=== PATIENT | male | born 1960 | race American Indian/Alaskan Native ===

== ENCOUNTER 2019-07-23 01:15 | Emergency (ER) | payer MEDICARE ==
[2019-07-23] MEDS ORDERED: ACETAMINOPHEN 500 MG TAB PO ONE (02:06)
--- NOTE | 2019-07-23 02:10 | Emergency Department Report ---
ED Shortness of Breath HPI - General Chief Complaint: Weakness Stated Complaint: SHORT OF BREATH COUGH + COVID-19 Time Seen by Provider: 07/23/19 01:26 Source: family, EMS Mode of arrival: Stretcher Limitations: No Limitations - History of Present Illness Initial Comments: 59-year-old male status post kidney transplant in 2018 presents to ED with shortness of breath. Patient tested positive for COVID-19. Patient reports his symptoms began 6 days ago, with fever, cough, diarrhea, and shortness of breath. Patient states he was seen at his PCPs office but was unable to get tested. 4 days ago he went to urgent care and was able to get tested for COVID-19. He was given a prescription for Tamiflu, azithromycin, and hydroxychloroquine at the urgent care. He also states he was given an injection at the urgent care but unsure what medication it was. Two days later, he received a call informing him that he tested positive for COVID-19. Patient has taken those medications for the last 2 days. He now presents to the ED for worsening shortness of breath. Patient currently takes CellCept, Prograf, and prednisone as antirejection medications. Transplant physician: Dr Melvin at [facility] Complaint: shortness of breath -: days(s) (6) Severity: moderate Consistency: intermittent Improves With: nothing Worsens With: exertion Associated Symptoms: fever, cough - Related Data Home Oxygen Therapy: No Home Medications Medication Instructions Recorded Confirmed Last Taken B Complex 11/Folic/C/Biot/Zinc 1 tab PO DAILY 02/04/14 09/27/15 1 Day Ago [Dialyvite with Zinc Tablet] ~09/26/15 Cinacalcet [Sensipar] 60 mg PO QHS 02/04/14 09/27/15 1 Day Ago ~09/26/15 allopurinoL [Zyloprim] 100 mg PO QAM 02/04/14 09/27/15 1 Day Ago ~09/26/15 Calcium Acetate [Phoslo] 667 mg PO TID 05/02/14 09/27/15 1 Day Ago ~09/26/15 Previous Rx's Medication Instructions Recorded Last Taken Type Midodrine [Proamatine] 2.5 mg PO TID PRN #30 tablet 09/29/15 Unknown Rx Allergies Allergy/AdvReac Type Severity Reaction Status Date / Time No Known Allergies Allergy Verified 10/12/15 19:25 ED Review of Systems ROS: Stated complaint: SHORT OF BREATH COUGH + COVID-19 Other details as noted in HPI Comment: All other systems reviewed and negative Constitutional: fever Respiratory: cough, SOB with exertion, SOB at rest Gastrointestinal: diarrhea ED Past Medical Hx - Past Medical History Hx Hypertension: Yes Hx Congestive Heart Failure: No Hx Diabetes: No Hx GERD: No Hx Renal Disease: Yes (LLE vascular access) Hx Kidney Stones: Yes Hx Asthma: No Additional medical history: BPH. GOUT - Surgical History Additional Surgical History: Right nephrectomy - Social History Smoking Status: Never Smoker Substance Use Type: None - Medications Home Medications: Home Medications Medication Instructions Recorded Confirmed Last Taken Type B Complex 11/Folic/C/Biot/Zinc 1 tab PO DAILY 02/04/14 09/27/15 1 Day Ago History [Dialyvite with Zinc Tablet] ~09/26/15 Cinacalcet [Sensipar] 60 mg PO QHS 02/04/14 09/27/15 1 Day Ago History ~09/26/15 allopurinoL [Zyloprim] 100 mg PO QAM 02/04/14 09/27/15 1 Day Ago History ~09/26/15 Calcium Acetate [Phoslo] 667 mg PO TID 05/02/14 09/27/15 1 Day Ago History ~09/26/15 Midodrine [Proamatine] 2.5 mg PO TID PRN #30 tablet 09/29/15 Unknown Rx ED Physical Exam - General Limitations: No Limitations General appearance: alert, in no apparent distress, obese - Head Head exam: Present: atraumatic, normocephalic - Eye Eye exam: Present: normal appearance - ENT ENT exam: Present: mucous membranes moist - Neck Neck exam: Present: normal inspection - Respiratory Respiratory exam: Present: decreased breath sounds - Cardiovascular Cardiovascular Exam: Present: regular rate, normal rhythm - GI/Abdominal GI/Abdominal exam: Absent: distended - Extremities Exam Extremities exam: Present: normal inspection - Neurological Exam Neurological exam: Present: alert, oriented X3 - Psychiatric Psychiatric exam: Present: normal affect, normal mood - Skin Skin exam: Present: warm, dry, intact, normal color ED Course Vital Signs 07/23/19 07/23/19 07/23/19 01:38 01:46 01:50 Temperature 100.3 F H Pulse Rate 93 H 104 H 92 H Respiratory 29 H 41 H 17 Rate Blood Pressure 161/72 Blood Pressure 161/72 [Right] O2 Sat by Pulse 100 96 Oximetry 07/23/19 07/23/19 07/23/19 01:52 02:00 02:16 Temperature Pulse Rate 94 H 97 H Respiratory 20 23 31 H Rate Blood Pressure 159/73 146/77 Blood Pressure [Right] O2 Sat by Pulse 98 92 96 Oximetry 07/23/19 07/23/19 07/23/19 02:33 02:45 03:00 Temperature Pulse Rate 93 H 94 H 92 H Respiratory 23 28 H 41 H Rate Blood Pressure 146/75 146/75 Blood Pressure [Right] O2 Sat by Pulse 94 95 91 Oximetry 07/23/19 07/23/19 07/23/19 03:15 03:31 03:45 Temperature Pulse Rate 96 H 98 H 94 H Respiratory 18 27 H 34 H Rate Blood Pressure 147/78 146/75 139/70 Blood Pressure [Right] O2 Sat by Pulse 95 99 95 Oximetry 07/23/19 07/23/19 07/23/19 04:00 04:15 04:30 Temperature Pulse Rate 94 H 96 H 94 H Respiratory 39 H 38 H 22 Rate Blood Pressure 145/76 126/73 107/59 Blood Pressure [Right] O2 Sat by Pulse 97 99 95 Oximetry 07/23/19 04:45 Temperature Pulse Rate 89 Respiratory 33 H Rate Blood Pressure 109/61 Blood Pressure [Right] O2 Sat by Pulse 94 Oximetry - Reevaluation(s) Reevaluation #1: 07/23/19 04:30 Patient now tells me that he contacted his transplant physician who instructed him to come to [facility], but patient states EMS stated that they could not transport that far. Will contact [facility] transfer center. - Consultations Consultation #1: 07/23/19 03:15 Dr Ramon, infectious disease, paged to discuss pt for possible admission. 07/23/19 04:[address] Ramon. Consultation #2: 07/23/19 04:50 Spoke w/ Dr Sheppard, transplant physician, via [facility] transfer line. He has agreed to accept the patient. ED Medical Decision Making - Lab Data Result diagrams: 07/23/19 02:09 07/23/19 02:09 - EKG Data -: EKG Interpreted by Me EKG shows normal: sinus rhythm, axis, intervals, QRS complexes, ST-T waves Rate: normal - EKG Data Interpretation: no acute changes, other (QTc 417) - Radiology Data Radiology results: report reviewed, image reviewed - Medical Decision Making 59-year-old male with history of kidney transplant in 2018 here in ED with pneumonia due to COVID-19. Patient presented due to worsening shortness of breath. At rest, O2 sats ranged anywhere from 91 to 96% on room air. With ambulation around the room O2 sats did drop down to about 90% on room air, with patient becoming quite tachypneic with respiratory rate in the 40s. Patient has already taken azithromycin, Tamiflu, and hydroxychloroquine for the last 2 days. Labs showed lymphopenia, coagulopathy, elevated LDH and ferritin levels. Patient has several risk factors for decompensation including age, BMI, and immunosuppression. I spoke with Dr. Sheppard at [facility], physician on patient's transplant team, who believes that patient will benefit from transfer and admission at their facility. He agrees to accept patient in transfer. We are currently awaiting transport at this time. - Differential Diagnosis pneumonia Critical Care Time: Yes Critical care time in (mins) excluding proc time.: 35 Critical care attestation.: If time is entered above; I have spent that time in minutes in the direct care of this critically ill patient, excluding procedure time. Critical Care Time: 35 minutes ED Disposition Clinical Impression: Pneumonia due to COVID-19 virus, Coagulopathy, History of kidney transplant Disposition: [id number] ANOTHER TYPE HLTHCARE Is pt being admited?: No Condition: Stable Instructions: Bacterial Pneumonia (ED) Referrals: PRIMARY CARE, [Primary Care Provider] - 3-5 Days Time of Disposition: 04:52
[2019-07-23 02:31] LABS: Basophils % (Auto) 0.6 % (0.0-1.8); Eosinophils % (Auto) 0.1 % (0.0-4.3); Hematocrit 36.8 % (35.5-45.6); Hemoglobin 12.2 gm/dl (11.8-15.2); Lymphocytes # (Auto) 0.6 K/mm3 (1.2-5.4); Lymphocytes % (Auto) 8.7 % (13.4-35.0); Mean Corpuscular HGB Conc 33 % (32-34); Mean Corpuscular Volume 90 fl (84-94); Monocytes # (Auto) 0.6 K/mm3 (0.0-0.8); Monocytes % (Auto) 8.4 % (0.0-7.3); Platelet Count 264 K/mm3 (140-440); Red Blood Count 4.09 M/mm3 (3.65-5.03)
--- NOTE | 2019-07-23 02:34 | XRay Report ---
CHEST 1 VIEW 07/23/2019 1:25 AM INDICATION / CLINICAL INFORMATION: sob, COVID+. COVID-19 Status: Positive COMPARISON: 02/04/14 FINDINGS: SUPPORT DEVICES: None. HEART / MEDIASTINUM: No significant abnormality. LUNGS / PLEURA: Suboptimal inspiration resulting in low lung volumes. Patchy bilateral pulmonary opac ities. No pneumothorax. ADDITIONAL FINDINGS: No significant additional findings. IMPRESSION: 1. Patchy bilateral pulmonary opacities may represent pneumonia, possibly atypical/viral. Signer Name: Leighton Webster MD Signed: 07/23/2019 2:30 AM Workstation Name: [id number]
[2019-07-23 02:48] LABS: Calcium 9.7 mg/dL (8.4-10.2)
[2019-07-23 02:52] LABS: Alanine Aminotransferase 13 units/L (7-56); Albumin 3.8 g/dL (3.9-5)
[2019-07-23 02:56] LABS: Bilirubin,Direct < 0.2 mg/dL (0-0.2)
[2019-07-23 03:13] LABS: INR 2.68 (0.87-1.13)
[2019-07-23 03:28] LABS: Partial Thromboplastin Time 130.2 Sec. (24.2-36.6)
[2019-07-23 04:55] VITALS: BP 109/61
== END 2019-07-23 06:00 | disposition other institution (70) ==
LOC: ED 01:15
DX: J18.8 Other pneumonia, unspecified organism (principal); D68.8 Other specified coagulation defects; I10 Essential (primary) hypertension; M10.9 Gout, unspecified; Z90.5 Acquired absence of kidney; Z79.899 Other long term (current) drug therapy
CPT/HCPCS: 36415; 71045; 80048; 80076; 82728; 83615; 84145; 84484; 85025; 85379; 85610; 85730; 86140; 93005; 93010